=== PATIENT | female | born 1955 | race Caucasian/White ===

== ENCOUNTER 2020-08-29 16:26 | Inpatient (IN) | payer MEDICAID ==
[~2020-08-29] VITALS: Ht 152.4 cm; Wt 81.6 kg
[~2020-08-29 16:26] MED LIST: ASPIR 8181 MG PO; AUGMENTIN 875875 MG PO; CARISOPRODOL 3350 MG PO; CHLORZOXAZONE500 MG PO; CIPRO HC OTIC S10 ML OTIC; CIPROFLOXACIN500 M1 PO; CLARITIN10 MG PO; FLEXERIL PO; GABAPENTIN 100100 MG PO; GABAPENTIN100 MG PO; HYDROCODONE-AP1 EAC6 PO; LIDODERM TP; LIPITOR 20 MG T20 M1 PO; MEDROLDOSEPACK PO; METFORMIN HCL500 MG; MUCINEX DM TABL1 TA1 PO; NAPROSYN500 MG PO; NORCO 10-325 T1 EACH PO; NORCO 5-325 TA1 EACH PO; NORCO 7.5-3251 EACH PO; PEPCID20 MG PO; PREDNISONE 10 M10 MG PO; PREDNISONE 20 M20 MG PO; PROZAC20 MG PO; RANITIDINE 150150 M1 PO; ROBAXIN 750 MG750 M1 PO; TRIAMCINOLONE A80 G2 TOP; VICODIN; ZANTAC 150MG T150 MG PO
[2020-08-29 16:27] VITALS: BP 145/80
[2020-08-29 16:46] LABS: ABSOLUTE MONOCYTES 0.7 thou/uL (0.0-1.2); ABSOLUTE NEUTROPHILS 6.2 thou/uL (1.6-8.1); BASOPHILS 0.5 %; EOSINOPHILS 0.1 %; HEMATOCRIT 43.2 % (37.0-47.0); HEMOGLOBIN 14.4 gm/dL (12.0-15.0); LYMPHOCYTES 12.6 %; MCH 27.2 pg (26.0-34.0); MCHC 33.3 g/dL (28.0-37.0); MCV 81.7 fL (80.0-100.0); MONOCYTES 9.1 %; NUCLEATED RBCS 0 /100WBC; PLATELET COUNT* 291 thou/uL (150-400); POLYS 77.7 %; RBC 5.29 mil/uL (4.20-5.00); RDW-CV 14.8 % (10.5-14.5); WBC 7.9 thou/uL (4.0-11.0)
[2020-08-29 16:56] LABS: CALCIUM 9.3 mg/dL (8.5-10.1); CREATININE 0.9 mg/dL (0.6-1.3); POTASSIUM 3.8 mmol/L (3.5-5.1)
[2020-08-29 17:01] LABS: ALBUMIN 3.3 g/dL (3.4-5.0); TOTAL BILIRUBIN 0.5 mg/dL (<0.1-1.0); TOTAL PROTEIN 8.1 g/dL (6.4-8.2)
[2020-08-30] VITALS (7 sets, daily range): BP systolic 128–157; BP diastolic 58–92
--- NOTE | 2020-08-30 16:36 | EKG ---
[place] [address] ELECTROCARDIOGRAM REPORT Name: EMILY HARVEY Room: [place] [address] ADM IN .R.#: [id number] Admission: 08/29/20 Attend Phys: Hodan Bryant, Discharge: Date of : 59 Date of Service: 08/29/20 1908 Report #: [id number] THIS REPORT FOR: //name// [facility] ED Test Date: 2020-08-29 Test Time: 19:08:29 Pat Name: EMILY HARVEY Department: Room: [facility] Gender: F Buffing Machine Operator Semiautomatic: THERESA : 1955 Requested By: Nate Alberto Order Number: [id number] MD: Micheal Johnson Measurements Intervals [place] Rate: 88 P: 44 OK: 130 QRS: 15 QRSD: 91 T: 63 QT: 341 QTc: 413 Interpretive Statements Sinus rhythm Compared to ECG 04/26/2017 18:02:42 Myocardial infarct finding no longer present Electronically Signed On 08-30-2020 16:36:49 FLEXOGRAPHIC PRINTING PRESS OPERATOR by Micheal Johnson [email or web address] <ELECTRONICALLY SIGNED> By: Micheal Johnson MD, [facility] 08/30/20 1636 1908 1908 Micheal Johnson MD, [facility] /EPI
[2020-08-31 01:04] VITALS: BP 133/61
--- NOTE | 2020-08-31 03:21 | NUR ---
ASSUMED CARE OF PT AT 2100 FROM THE ER. PT IS ALERT AND OREINTED. VSS. PERRLA. NO COMPLAINTS OF PAIN. UP AD ADRIANA. NO COMPLAINTS OF PAIN. PT IS IN SINUS RYTHM ON THE TELEMETRY. PT IS RESTING COMFORTABLY IN BED. RESPIRATIONS ARE EVEN AND NONLABORED. WILL CONTINUE TO MONITOR PT.
[2020-08-31 05:03] VITALS: BP 136/67
[2020-08-31 08:00] VITALS: BP 147/66
[2020-08-31 11:43] VITALS: BP 113/55
--- NOTE | 2020-08-31 13:30 | NUR ---
CM COMPLETED THE INITIAL ASESSMENT. PT IS A&O. PT IS SEMI-ACTIVE, DISABLED D/T BACK PROBLEMS, AND INDEPENDENT W/ADLS. PT LIVES ALONE, HAS 15 STAIRS INTO HOME. PT USES A CANE FOR AMBULATORY SUPPORT. PT STATED THERE IS A [facility] NEAR BY HER HOME THAT HAS ALL TYPES OF FREE DME AND SHE CAN GET A WALKER FROM THERE NEED BE. PT A LITTLE FAMIAL SUPPORT. PT DENIES HX W/SNF OR HH. CM TO CONT TO FOLLOW.
[2020-08-31 15:30] VITALS: BP 132/66
--- NOTE | 2020-08-31 18:25 | NUR ---
PT IS RESTING AT THIS TIME. C/O NAUSEA MID AFTERNOON. ORDER OBTAINED FOR ANTIEMETIC. SEEMS TO HAVE HELPED ELEVIATE NAUSEA. PT STATES THAT SHE DOES NOT WANT TO TAKE PAIN MEDICATIONS REPORTING THAT MAY HAVE MADE HER NAUSEA. SR ON MONITOR.VSS ON 2L NC.NOTHING FURTHER.CLWR.WCTM.
[2020-08-31 19:45] VITALS: BP 126/62
[2020-09-01] VITALS (8 sets, daily range): BP systolic 126–138; BP diastolic 53–70
--- NOTE | 2020-09-01 03:25 | NUR ---
ASSUMED CARE OF PT AT 1900. PT IS ALERT AND ORIENTED. VSS. NO COMPLAINTS OF PAIN. PT IS ON 2 LITERS O2. PT IS IN SINUS RYTHM ON THE TELEMETRY. PT IS RESTING COMFORTABLY IN BED. WILL CONTINUE TO MONITOR PT.
[2020-09-01] MEDS ORDERED: ZINC SULFATE 2220 MG PO (14:56)
[2020-09-01] MEDS ORDERED: VITAMIN C1000 MG PO (14:57)
[2020-09-01] MEDS ORDERED: AZITHROMYCIN250 MG PO (14:57)
[2020-09-01] MEDS ORDERED: VITAMIN D3125 MC1 PO (14:58)
--- NOTE | 2020-09-01 16:16 | NUR ---
NOTIFIED BY SEBASTIAN STEWART PT.TO DISCHARGE HOME TODAY. NEEDS TRANSPORTATION. [phone] TO ARRANGE WC [facility]. NOTIFIED [facility] PT.IS COVID POSITIVE. THEY HAVE 3 HR WINDOW TO PICK PT.UP [id number] PM. ENERGY SALES CONSULTANT WILL CALL WHEN HE ARRIVES. TO COME IN ER ENTRANCE. TRIP #[id number]. NOTIFIED SACHA,[place]S. OF [place]OVE. SHE WILL RELAY MESSAGE TO SEBASTIAN STEWART.
--- NOTE | 2020-09-01 18:30 | NUR ---
PT A&OX4 VSS. PT UP AD ADRIANA IN ROOM, GAIT STEADY. SINUS RHYTHM ON MONITOR. PT USES CALL LIGHT APPROPRIATELT. PT CLEARED BY RT TO DC HOME. IV TO L HAND AND RAC PATENT, DRESSING C/D/I. IV ACCESS X2 DC'D PRIOR TO PT LEAVING UNIT. pT STATES UNDERSTANDING OF DC INSTRUCTIONS AND RXs CALLED TO PHARMACY OF PT CHOICE. CM ARRANGED TRANSPORT FOR THIS PT. [facility], PT LEFT UNIT WITH AMBULANCE CREW AND ALL PERSONAL BELONGINGS.
== END 2020-09-01 18:45 | disposition home or self-care (01) | DRG 177 ==
LOC: M.ERS 16:26 → M.TBA-ER 18:17 → M.ORTHSURG 08-30 19:19
PROVIDERS: Family Medicine; ADMIT Internal Medicine; ATTEND Internal Medicine
DX: U07.1 COVID-19 (principal); J96.01 Acute respiratory failure with hypoxia; J12.89 Other viral pneumonia; K21.9 Gastro-esophageal reflux disease without esophagitis; F41.9 Anxiety disorder, unspecified; G62.9 Polyneuropathy, unspecified; Z87.891 Personal history of nicotine dependence; Z79.899 Other long term (current) drug therapy